=== PATIENT | male | born 1965 | race African-American/Black ===

== ENCOUNTER 2022-11-06 11:24 | Day surgery (SDC) | payer BC, SELFPAY ==
[2022-11-06] VITALS (13 sets, daily range): BP systolic 112–146; BP diastolic 74–101; PULSE 59–73; RESP 14–20; TEMP 36.1–36.8; O2SAT 93–100; BMI 28.0
--- NOTE | 2022-11-06 11:47 | CRLHL7_ITS ---
For Patients: As a result of the Century Cures Act, medical imaging exams and procedure reports are released immediately into your electronic medical record. You may view this report before your referring provider. If you have questions, please contact your health care provider. INDICATION: RT FLANK PAIN TECHNIQUE: CT abdomen and pelvis without contrast, stone protocol. COMPARISON: None. FINDINGS: Kidney/ureters: Kidneys are normal in caliber. No kidney or ureteral stones and no hydronephrosis. No sign of perinephric inflammation. Ureters are normal in caliber. Decompressed bladder. Liver/gallbladder/bile ducts: The liver is normal in size, shape and attenuation. Gallbladder is normal without visualized stones or inflammation. No biliary dilatation. Spleen/pancreas/adrenal glands: The spleen, adrenal glands and pancreas are within normal limits. GI tract: No evidence of bowel obstruction. Indeterminate linear hyperdensity within the distal small bowel measuring 1.3 cm. Mildly dilated appendix measuring up to 8-9 mm which appears predominantly fluid-filled although partially air-filled. No significant adjacent inflammation. Subcentimeter right lower quadrant lymph nodes. Query rectal wall thickening. Abdominal wall/omentum/peritoneum: No free air or significant free fluid. No mass or inflammation. Lymph nodes: No lymphadenopathy. Pelvis: Unremarkable pelvis. Lower chest: Unremarkable. Bones: Mild multilevel degenerative spondylosis without acute fracture or aggressive osseous lesion. IMPRESSION: Mildly dilated appendix measuring up to 8-9 mm which appears predominantly fluid-filled although partially air-filled. No significant adjacent inflammation. Subcentimeter right lower quadrant lymph nodes. Overall, findings may indicate developing acute appendicitis in the appropriate clinical setting. Indeterminate thin linear hyperdensity within the distal small bowel measuring 1.3 cm. Finding is nonspecific and may indicate an ingested foreign body. Query rectal wall thickening which may relate to degree of decompression although underlying lesion cannot be excluded. Recommend correlation with colonoscopy history. No evidence of nephroureterolithiasis or hydroureteronephrosis. Please note that all CT scans at this facility use dose modulation, iterative reconstruction, and/or weight-based dosing when appropriate to reduce radiation dose to as low as reasonably achievable. Dictated by Ernst Chatterjee MD @ 11/06/2022 1:06:27 PM (Electronically Signed)
--- NOTE | 2022-11-06 11:49 | ED.GENADULT ---
HPI - General Adult General Time Seen by Provider: 11:49 Date Seen: 11/06/22 Chief complaint: Abdominal Pain Stated complaint: Abdominal pain Time Seen by Provider: 11/06/22 11:26 Source: patient Mode of arrival: ambulatory Limitations: no limitations History of Present Illness HPI narrative: Patient is a 57-year-old black male who presents with right-sided abdominal pain. The patient reports he had this about a month ago and it seemed to get better after drinking a lot of apple juice, but is recurred over the last day or so. Worse when he stands up, worse if he breathes deeply. He has no chest symptoms no chest pain, no at diaphoresis, no nausea. No vomiting. The patient has asthma and takes montelukast for that. Patient is otherwise quite healthy, exercises, is active. He works for the [employer]. Patient has had no chills or fever. He is concerned about gallbladder or appendicitis. Related Data Home Medications Medication Instructions Recorded Confirmed montelukast .ROUTE 11/06/22 Previous Rx's Medication Instructions Recorded hydrocodone 5 mg-acetaminophen 325 1 - 2 tab PO Q6H PRN Pain #20 tabs 11/06/22 mg tablet Allergies Allergy/AdvReac Type Severity Reaction Status Date / Time No Known Drug Allergies Allergy Verified 11/06/22 11:35 Review of Systems Status of ROS: Reports: 6 or more systems reviewed and unremarkable except as noted in History and below [facility] Medical History (Updated 11/06/22 @ 16:20 by Joanna Kimbrough MD) Asthma ?J45.909 - Unspecified asthma, uncomplicated (ICD-10) Social History (Updated 11/06/22 @ 16:17 by Joanna Kimbrough MD) Narrative: The patient does not smoke. He drinks alcohol once a week. 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 He moved to [place] within the past few years. Has not establish primary care. Smoking Status: Former smoker How often do you have a drink containing alcohol: 2-4 times a month AUDIT-C Alcohol total score: 2 Non-prescribed substance use: denies use Exam Narrative: Exam Narrative: Objective: Vital signs unremarkable In general no apparent distress Lying recumbent the patient has no symptoms. HEENT unremarkable chest is clear heart rhythm regular heart murmur Abdomen is soft no palpable masses, he does have some mild right lower quadrant tenderness to palpation, but no rebound. Extremities are no edema neurologic nonfocal No symptoms Const: Vital Signs, click to edit/add: Vital Signs - 24 hr 11/06/22 11:30 11/06/22 13:15 Temperature 97.3 F L 97 F L Pulse Rate [Pulse Oximeter] 62 61 Respiratory Rate 18 Blood Pressure [Ri ght Upper Arm] 112/78 128/79 Pulse Oximetry 95 97 Oxygen Delivery Me thod Room Air Room Air Course Vital Signs Vital signs: Initial Vital Signs Temperature 97.3 F L 11/06/22 11:30 Temperature Source Temporal Artery Scan 11/06/22 11:30 Pulse Rate 62 11/06/22 11:30 Respiratory Rate 18 11/06/22 11:30 Blood Pressure 112/78 11/06/22 11:30 Blood Pressure Mean 89 11/06/22 11:30 Blood Pressure Position Supine 11/06/22 11:30 Pulse Oximetry 95 11/06/22 11:30 Oxygen Delivery Method Room Air 11/06/22 11:30 Vital Signs Temperature 97.3 F L 11/06/22 11:30 Pulse Rate 62 11/06/22 11:30 Respiratory Rate 18 11/06/22 11:30 Blood Pressure 112/78 11/06/22 11:30 Pulse Oximetry 95 11/06/22 11:30 Oxygen Delivery Method Room Air 11/06/22 11:30 Temperature 97 F L 11/06/22 13:15 Pulse Rate 61 11/06/22 13:15 Respiratory Rate 18 11/06/22 11:30 Blood Pressure 128/79 11/06/22 13:15 Pulse Oximetry 97 11/06/22 13:15 Oxygen Delivery Method Room Air 11/06/22 13:15 Medical Decision Making MDM Narrative Medical decision making narrative: 57-year-old black male with a history of right-sided abdominal pain that occurred about a month ago, and then recurred again today. It is worse with deep breathing or movement. Worse if he tries to stand up straight. He denies any muscular injuries. He is concerned about his gallbladder and appendix. I think those are reasonable concerns and will check a CT scan of his abdomen without contrast a urinalysis laboratory studies including heme 4 basic 7 LFT. Will give a 0.5 L saline, the patient declines any pain medicine at this time. Depending on findings may need ultrasound was right upper quadrant as well. Please see addendum dictation. Addendum a lot 1:12 p.m.: The patient has a CT scan that shows a questionable appendicitis it is very early. There is no significant stranding around the appendix but there is some fluid in the appendix. And it is dilated slightly. The patient does have mild right lower quadrant tenderness but not really rebound. His lab studies look reassuring. Will discuss with our surgeon personal banking assistant and make a treatment plan Lab Data Labs: Lab Results 11/06/22 Range/Units 11:55 WBC 3.60 L (4.50-11.00) K/uL RBC 4.46 (4.30-5.90) m/uL Hgb 12.7 L (13.5-17.5) gm/dL Hct 39.2 (37.0-53.0) % MCV 88 (80-100) fL MCH 29 (26-34) pg MCHC 32 (32-36) gm/dL RDW Coeff of Karsten 12.9 (11.5-15.5) % Plt Count 253 (140-440) K/uL Neut % (Auto) 31.1 L (42.0-72.0) % Lymph % (Auto) 51.9 H (20-44) % Knott % (Auto) 8.9 (0.0-11.0) % Eos % (Auto) 7.8 H (0.0-7.0) % Baso % (Auto) 0.3 (0.0-3.0) % Neut # (Auto) 1.10 L (1.7-7.0) K/uL Lymph # (Auto) 1.90 (0.90-2.90) K/uL Knott # (Auto) 0.30 (0.00-0.90) K/UL Eos # (Auto) 0.30 (0.00-0.50) K/uL Baso # (Auto) 0.00 (0.00-0.30) K/uL Abs Immat Gran (auto) 0.00 (0.00-0.30) K/uL Imm/Tot Granulo (auto) 0.0 % Sodium 139 (135-149) mmol/L Potassium 4.0 (3.6-5.1) mmol/L Chloride 109 (96-114) mmol/L Carbon Dioxide 24 (20-32) mmol/L Anion Gap 6 L (7-15) mEq/L BUN 18 (7-30) mg/dL Creatinine 0.8 (0.5-1.5) mg/dL Estimated Creat Clear 109.81 Estimated GFR 104 ml/min Glucose 121 H (60-115) mg/dL Calcium 8.7 (8.4-10.6) mg/dL Total Bilirubin 0.3 (0.1-1.5) mg/dL Direct Bilirubin 0.0 (0.0-0.5) mg/dL AST 35 (12-35) U/L ALT 29 (4-50) U/L Alkaline Phosphatase 67 (40-150) U/L C-Reactive Protein 0.8 (0.5-1.0) mg/dL Total Protein 8.0 (6.0-8.3) g/dL Albumin 3.8 (3.3-5.0) g/dL Amylase 180 H (18-89) U/L Lipase 150 (23-300) U/L Urine Color Yellow (Yellow) Urine Appearance Clear (Clear) Urine pH 5.5 (5.0-8.5) Ur Specific [place] 1.025 (1.000-1.030) Urine Protein Negative (Negative) Urine Glucose (UA) Negative (Negative) Urine Ketones Negative (Negative) Urine Blood Trace-lysed A (Negative) Urine Nitrite Negative (Negative) Urine Bilirubin Negative (Negative) Urine Urobilinogen 0.2 (0.2-1.0) Ur Leukocyte Esterase Negative (Negative) Urine RBC 0-2 (0-2) Urine WBC 0-2 (0-5) Ur Squamous Epith Cells None (None-Few) Urine Bacteria None (None) Discharge Plan Discharge Clinical Impression: Acute right flank pain Patient Disposition: XFER to OR
[2022-11-06] MEDS: 0.9 % SODIUM CHLORIDE 500 ML 500 ML IV (12:05)
[2022-11-06 12:09] LABS: Basophils Percent Auto 0.3 % (0.0-3.0); Eosinophils Percent Auto 7.8 % (0.0-7.0); Hematocrit 39.2 % (37.0-53.0); Hemoglobin* 12.7 gm/dL (13.5-17.5); Lymphocytes Percent Auto 51.9 % (20-44); Mean Corpuscular HGB Conc 32 gm/dL (32-36); Mean Corpuscular Hemoglobin 29 pg (26-34); Mean Corpuscular Volume 88 fL (80-100); Monocytes Percent Auto 8.9 % (0.0-11.0); Neutrophils Percent Auto 31.1 % (42.0-72.0); Platelet Count* 253 K/uL (140-440); RDW Coefficient of Variation % 12.9 % (11.5-15.5); Red Blood Count 4.46 m/uL (4.30-5.90)
[2022-11-06 12:11] LABS: Appearance Urine Clear (Clear); Bilirubin Urine Negative (Negative); Blood Urine Trace-lysed (Negative); Color Urine Yellow (Yellow); Glucose Urine Negative (Negative); Ketones Urine Negative (Negative); Leukocyte Esterase Urine Negative (Negative); Nitrite Urine Negative (Negative); Protein Urine Negative (Negative); Specific Gravity Urine 1.025 (1.000-1.030); Urobilinogen Urine 0.2 (0.2-1.0); pH Urine 5.5 (5.0-8.5)
[2022-11-06 12:18] LABS: RBC Urine 0-2 (0-2); WBC Urine 0-2 (0-5)
[2022-11-06 12:20] LABS: Slide Review Reflex No
[2022-11-06 12:22] LABS: Albumin* 3.8 g/dL (3.3-5.0); Chloride* 109 mmol/L (96-114)
[2022-11-06 12:23] LABS: Sodium* 139 mmol/L (135-149)
[2022-11-06 12:25] LABS: Amylase* 180 U/L (18-89); Creatinine* 0.8 mg/dL (0.5-1.5); Est. Creatinine Clearance* 109.81; Estimated Glomerular Filt Rate 104 ml/min
[2022-11-06 12:26] LABS: Alanine Aminotransferase* 29 U/L (4-50); Alkaline Phosphatase* 67 U/L (40-150); Anion Gap 6 mEq/L (7-15); Aspartate Amino Transferase* 35 U/L (12-35); Bilirubin Total* 0.3 mg/dL (0.1-1.5); Blood Urea Nitrogen* 18 mg/dL (7-30); Calcium* 8.7 mg/dL (8.4-10.6); Carbon Dioxide* 24 mmol/L (20-32); Glucose* 121 mg/dL (60-115); Lipase* 150 U/L (23-300)
[2022-11-06 12:29] LABS: C Reactive Protein* 0.8 mg/dL (0.5-1.0)
--- NOTE | 2022-11-06 13:13 | ED.NURSE ---
SL Dc'd intact. pt sitting on edge of bed, states feels well. daughter helping pt dress.
--- NOTE | 2022-11-06 16:12 | P.GSHP_ITS ---
History of Present Illness History of Present Illness Date Seen: 11/06/22 Chief complaint: Abdominal pain Narrative: Darryl Trejo is a 57 year old male presents the emergency department with right lower quadrant pain radiating around to his back. This pain started a week ago, however it went away. It then came back 2 days ago at a 7 to 8/10 and has been progressively worse. He has not had pain like this before. No nausea or vomiting. No change in bowel habits. No dysuria. No chest pain or shortness of breath. He states that the pain is worse with movement. It goes away only when he lays flat and is not moving. He last ate this morning. [facility] Medical History (Updated 11/06/22 @ 16:20 by Joanna Kimbrough MD) Asthma ?J45.909 - Unspecified asthma, uncomplicated (ICD-10) Social History (Updated 11/06/22 @ 16:17 by Joanna Kimbrough MD) Narrative: The patient does not smoke. He drinks alcohol once a week. 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 He moved to [place] within the past few years. Has not establish primary care. Smoking Status: Former smoker How often do you have a drink containing alcohol: 2-4 times a month AUDIT-C Alcohol total score: 2 Non-prescribed substance use: denies use Meds Home Medications and Allergies Home Medications Medication Instructions Recorded Confirmed Type montelukast .ROUTE 11/06/22 History Allergies Allergy/AdvReac Type Severity Reaction Status Date / Time No Known Drug Allergies Allergy Verified 11/06/22 11:35 Exam Narrative: Exam Narrative: General appearance: Alert, cooperative, and fairly uncomfortable on exam Eyes: PERRLA, eye lids clear, and sclera white HENT Head: Normocephalic Ears: External ears normal Pulmonary: Clear to auscultation bilaterally Cardiovascular Heart: Regular rate and rhythm Extremities: warm and well perfused Gastrointestinal Abdominal: No scars. Nontender in the upper abdomen. Negative Coelho sign. He is tender in the right lower quadrant. He has no guarding however his pain is much worse on rebound. Pain is significantly worse with movement and repositioning. Musculoskeletal: Extremities: Upper: Both upper extremities have normal joint range of motion and intact strength. Lower: Both lower extremities have normal joint range of motion and intact strength. Skin: Normal skin color, texture, and turgor. Neurologic: No focal deficits Psychiatric: Alert, oriented, cooperative, normal affect. Const: Vital Signs, click to edit/add: Vital Signs - 24 hr 11/06/22 11:30 11/06/22 13:15 Temperature 97.3 F L 97 F L Pulse Rate [Pulse Oximeter] 62 61 Respiratory Rate 18 Blood Pressure [Ri ght Upper Arm] 112/78 128/79 Pulse Oximetry 95 97 Oxygen Delivery Me thod Room Air Room Air Results Results Labs: White Blood cell count is low at 3.6. UA was negative but for a trace of blood. Amylase mildly elevated at 180. Lipase normal. LFTs normal. Electrolytes normal. Abdomen CT scan report/results: report reviewed and image reviewed Additional studies: CT scan of the abdomen and pelvis done today. IMPRESSION: Mildly dilated appendix measuring up to 8-9 mm which appears predominantly fluid-filled although partially air-filled. No significant adjacent inflammation. Subcentimeter right lower quadrant lymph nodes. Overall, findings may indicate developing acute appendicitis in the appropriate clinical setting. Indeterminate thin linear hyperdensity within the distal small bowel measuring 1.3 cm. Finding is nonspecific and may indicate an ingested foreign body. Query rectal wall thickening which may relate to degree of decompression although underlying lesion cannot be excluded. Recommend correlation with colonoscopy history. No evidence of nephroureterolithiasis or hydroureteronephrosis. Please note that all CT scans at this facility use dose modulation, iterative reconstruction, and/or weight-based dosing when appropriate to reduce radiation dose to as low as reasonably achievable. Dictated by Ernst Chatterjee MD @ 11/06/2022 1:06:27 PM Assessment and Plan Assessment and plan (1) Asthma: Status: Acute (2) Appendicitis: Status: Acute Plan The patient is a 57-year-old male who has right lower quadrant pain and CT scan findings of a mildly prominent appendix. He and I discussed options which include antibiotics given his non elevated white blood cell count or CRP and mildly dilated appendix. We also discussed removing the appendix. If the appendix looks normal then I would look for possible Meckel's diverticulum or other pathology. He specifically asked about his gallbladder, however he is not tender in his right upper quadrant. The gallbladder appeared normal on CT, however this is not always the best test. Given his symptoms which are very specifically in the right lower quadrant I think that appendicitis is the most likely diagnosis. We discussed that appendectomy is the preferred treatment for this. This can most often be done laparoscopically. We discussed risks and benefits of the procedure including but not limited to bleeding, need for conversion to open, risk of injury to other structures, need for possible bowel resection, and abscess formation. The patient understands that the risk of abscess is higher if the appendix is perforated. For that reason, we generally keep patient is in the hospital on IV antibiotics until vital signs and white blood cell count had normalized. We also discussed recovery including 2 weeks of lifting restrictions. We will plan on surgery urgently this evening.
--- NOTE | 2022-11-06 16:24 | PM.GSPRC ---
Operative Note Pre-op diagnosis: Acute appendicitis Post-op diagnosis: same Type of Procedure: Laparoscopic appendectomy Indications: The patient is a 57-year-old male with right lower quadrant pain. Imaging revealed mildly dilated appendix concerning for early appendicitis. Given his exam and those findings we discussed observation with antibiotics versus appendectomy and he agreed to proceed with appendectomy. Procedure Description: After discussing the risks and benefits of the procedure, the patient signed informed consent.? The operative site was marked and the patient was brought to the operating room and placed on the operating table in supine position.? Care was taken to pad the patient's pressure points.?? The patient was then intubated by anesthesia.?? The operative site was then prepped and draped in the usual sterile fashion.? A time-out was then performed. Entrance to the abdomen was obtained via a 5 mm optical trocar in the left upper quadrant. The abdomen was insufflated and briefly surveyed for any signs of injury. There were none. A 12 mm port was placed inferior to the umbilicus as well as a 5 mm port in the left lower quadrant. Both were done under direct vision. The patient was then placed in Trendelenburg position with the right side up. The small bowel was gently moved out of the way and the appendix was in view. This was mildly distended, more so at the tip. There was no purulence. A small amount of dissection was necessary to free the appendix from the surrounding pelvic attachments. The appendix was grasped and pulled into view. A mesenteric window was created between the base of the appendix and the mesoappendix. An Endo-SAIRA purple load stapler was then used to transect the appendix at its base. A stapler was then used to divide the mesoappendix. The staple lines were inspected for bleeding. The mesoappendix staple line was oozing and several small clips were placed on it to ensure hemostasis. At the end of the procedure, hemostasis appeared excellent. Because of the mild inflammation of the appendix, I did look at the gallbladder which was not inflamed and nondistended. I also ran the small bowel for approximately 100 cm proximal to the ileocecal valve. There was no sign of Meckel's diverticulum. There was no noted additional intra-abdominal pathology. The appendix was then removed from the abdomen using an Endo-Catch bag. The specimen was sent to pathology. The ports were removed and the abdomen was desufflated. The 12 mm port site fascia was closed with 0 Vicryl. The skin was then closed with absorbable subcuticular suture. Sterile dressings were then applied. Instrument sponge and needle counts were correct at the end of the case. The patient was then woken and transported to the PACU in stable condition. The patient tolerated the procedure well. Findings: Mildly inflamed appendix with a distended tip. Anesthesia: GETA Surgeon: Joanna Kimbrough MD Estimated blood loss (mL): 10 Specimen: Appendix Condition: stable Disposition: PACU
[2022-11-06] MEDS: LACTATED RINGERS 1000 ML 1,000 ML 75 ML IV (16:35)
[2022-11-06] MEDS: PIPERACILLIN/TAZOBACTAM 3.375 GM INJ IVPB (16:45)
[2022-11-06] MEDS: BUPIVACAINE 0.25% 30 ML INJECTION (17:28)
--- NOTE | 2022-11-06 17:48 | P.ANES_ITS ---
Anesthesia Charges Start Date/Time Anesthesia Start Date: 11/06/22 Anesthesia Start Time: 16:36 Stop Date/Time Anesthesia Stop Date: 11/06/22 Anesthesia Stop Time: 17:46 Summary Emergency: [facility]MER
[2022-11-06] MEDS: HYDROmorphone 0.5 mg/0.5 ml inj IVP (17:51)
--- NOTE | 2022-11-06 20:14 | PC.NURSE ---
Pt returned to room 258 post-op. VS WNL and LS COA. Afebrile. Rates abdominal pain 4/10. 3 lap sites well approximated with steri-strips and scant amount of bloody drainage from proximal site. BS present and pt advanced to juice and crackers without difficulty. Voided in toilet prior to discharge. S/O present at bedside for discharge education. Pt and his partner verbalized understanding of discharge instructions and follow up appointments. He was discharged to home in the care of his S/O via wheelchair at 1947.
== END 2022-11-06 19:47 | disposition home or self-care (01) ==
LOC: ED 15:34 → SS 16:37 → MEDSURG 17:42
PROVIDERS: Emergency Provider Family Medicine; Visit Provider Surgery
PROC: 0DTJ4ZZ Resection of Appendix, Percutaneous Endoscopic Approach (ICD-10-PCS; CPT 44970; principal; 2022-11-06 16:00)
DX: K35.80 Unspecified acute appendicitis (principal); J45.909 Unspecified asthma, uncomplicated
CPT/HCPCS: 44970; 00840; 36415; 74176; 80048; 80076; 81001; 82150; 83690; 85025; 86140; 87086; 88304; 99140; 99284; J0330; J0665; J1100; J1170; J2250; J2405; J2543; J2704; J3010; J3490; J7120